=== PATIENT | female | born 1965 | race Caucasian/White ===

== ENCOUNTER 2024-11-03 21:01 | Emergency (ER) | payer BC, OTHER ==
[~2024-11-03] VITALS: Ht 162.6 cm; Wt 93.2 kg
[~2024-11-03 21:01] MED LIST: IBUP-1456 PO
[2024-11-03] MEDS: LIDOCAINE 1% HCL (LOCAL ANESTH.) INJ 20ML MDV ONE (21:34)
[2024-11-03] MEDS: LIDOCAINE 1% HCL (LOCAL ANESTH.) INJ 20ML MDV ID ONE (21:35)
--- NOTE | 2024-11-03 21:38 | ED.PDOC ---
HPI Comments 59 y/o F, presents to the ED for CC of laceration. Patient states, she accidently cut herself between her left 3rd and 4th digit while trying to open a can approximately x1hr PT ESCORT. Patient comments, she was seen at [facility] and was relayed to the ED for further care. No other symptoms or modifying factors present at this time. Time Seen by MD: 21:30 Primary Care Provider: KEVIN Reviewed Notes: Nurses Notes, Medications, Allergies Allergies: Coded Allergies: NO KNOWN ALLERGIES (Unverified , 11/29/11) Home Meds Reported Medications Ibuprofen (Ibuprofen) 800 Mg Tab, 800 MG PO Q8HP, TAB 08/30/13 Information Source: Patient Mode of Arrival: Ambulatory Severity: Moderate Severity of Laceration: Controlled Bleeding Complexity: Simple Timing: Minutes Prehospital treatment: None Laceration Location: Digit #3, Digit #4 Mechanism: Metal Last Tetanus: UTD Laceration Length (cm): 1 Depth of Injury: Skin Tendon Injury: 0% Tender: Moderate Discharge: Bloody Erythema: Localized to Wound Edges Past Medical History PAST MEDICAL HISTORY: DM Surgical History: Pacemaker, Thyroidectomy, Denies all surgeries Family History Family History: Unknown Social History Smoker: Non-Smoker Alcohol: Denies ETOH Use Drugs: Denies Drug Use Lives In: Home Constitutional: denies: chills, diaphoresis, fatigue, fever, malaise, sweats, weakness, others EENTM: denies: blurred vision, double vision, ear bleeding, ear discharge, ear drainage, ear pain, ear ringing, eye pain, eye redness, hearing loss, mouth pain, mouth swelling, nasal discharge, nose bleeding, nose congestion, nose pain, photophobia, tearing, throat pain, throat swelling, voice changes, others Respiratory: denies: cough, hemoptysis, orthopnea, SOB at rest, shortness of breath, SOB with excertion, stridor, wheezing, others Cardiovascular: denies: chest pain, dizzy spells, diaphoresis, Dyspnea on exertion, edema, irregular heart beat, left arm pain, lightheadedness, palpitations, PND, syncope, others Gastrointestinal: denies: abdomen distended, abdominal pain, blood streaked bowels, constipated, diarrhea, dysphagia, difficulty swallowing, hematemesis, melena, nausea, poor appetite, poor fluid intake, rectal bleeding, rectal pain, vomiting, others Genitourinary: denies: abnormal vagina bleeding, burning, dyspareunia, dysuria, flank pain, frequency, hematuria, incontinence, pain, , vagina dischar ge, urgency, others Neurological: denies: dizziness, fainting, headache, left sided numbness, left sided weakness, numbness, paresthesia, pre-existing deficit, right sided numbness, right sided weakness, seizure, speech problems, tingling, tremors, weakness, others Musculoskeletal: denies: back pain, gout, joint pain, joint swelling, muscle pain, muscle stiffness, neck pain, others Integumetry: reports: laceration (1CM BETWEENT THE LEFT 3RD AND 4TH DIGIT); denies: bruises, change in color, change in hair/nails, dryness, lesions, lumps, rash, wounds, others Allergic/Immunocompromised: denies: Difficulty Healing, Frequent Infections, Hives, Itching, others Hematologic/Lymphatic: denies: anemia, blood clots, easy bleeding, easy bruising, swollen glands, others Endocrine: denies: excessive hunger, excessive sweating, excessive thirst, excessive urination, flushing, intolerance to cold, intolerance to heat, unexplained weight gain, unexplained weight loss, others Psychiatric: denies: anxiety, bipolar disorder, depression, hopeless, panic disorder, schizophrenia, sleepless, suicidal, others Physical Exam General Appearance: No Apparent Distress, Normal HEENT: Normal ENT Inspection, Pharynx Normal Neck: Full Range of Motion, Non-Tender, Normal, Normal Inspection Respiratory: Chest Non-Tender, Lungs Clear, No Accessory Muscle Use, No Respiratory Distress, Normal Breath Sounds Cardiovascular: No Edema, No Murmur, No Gallop, Normal Peripheral Pulses, Regular Rate/Rhythm Breast Exam: Deferred Gastrointestinal: No Organomegaly, Non Tender, No Pulsatile Mass, Normal Bowel Sounds, Soft Genitalia: Deferred Pelvic: Deferred Rectal: Deferred Extremities: No calf tenderness, Normal capillary refill, Normal inspection, Normal range of motion, Non-tender, No pedal edema Musculoskeletal : Apperance: Normal Neurologic: Alert, apns II-XII nml as Tested, No Motor Deficits, Normal Affect, Normal Mood, No Sensory Deficits Cerebellar Function: Normal Reflexes: Normal Skin: Dry, Lacerations (1CM BETWEEN THE LEFT 3RD AND 4TH DIGIT), Normal Color, Warm Lymphatic: No Adenopathy Was a procedure done? Was a procedure done?: Yes Sedation Sedation?: No Laceration Repair : Location between left 3rd and 4th digits Length 1cm Anesthetic: Lidocaine (1% 2cc) Laceration Repair Wound Comple: epidermis/dermis repair Laceration Repair: Number of sutures (2) Informed consent obtained: Yes Risks, benefits, and alternati: Yes Differential diagnosis Generic Laceration: Laceration Differential Diagnosis: N/A X-Ray, Labs, Meds, VS Vital Signs Date Time Temp Pulse Resp B/P (MAP) Pulse Ox O2 Delivery O2 Flow Rate FiO2 11/03/24 21:29 98.0 104 17 143/94 (110) 95 98.0 Current Medications Medications (Trade) Dose Ordered Sig/Isaura Route Start Time Stop Time Status Last Admin Lidocaine HCl (Xylocaine 1%) ONCE ONCE ID 11/03/24 21:30 11/03/24 21:31 DC 11/03/24 21:35 X-Ray, Labs, Meds, VS Comment Imaging: X-rays and CT scans were reviewed and interpreted by this provider, imaging shows no fractures and no pathological disease. Pending radiology review. Laboratory: Labs reviewed and interpreted by this provider. No significant abnormalities noted. Patient has prior medical visits reviewed. Med reconciliation performed Vital signs reviewed Time of 1ST Reevaluation: 22:00 Reevaluation 1ST: Unchanged Patient Education/Counseling: Diagnosis, Treatment, Need For Follow Up (Follow up in 5-7 days for suture removal) Family Education/Counseling: No Family Present Departure 1 Departure Time of Disposition: 21:41 Impression: Primary Impression: Hand laceration Qualified Codes: S61.412A - Laceration without foreign body of left hand, initial encounter Disposition: HOME / SELF CARE / HOMELESS Condition: Fair Discharged With: Self Critical Care Note Critical Care Time?: No Stability Stability form required: No Heart Score Heart Score: Heart Score Response (Comments) Value History N/A 0 EKG N/A 0 Age N/A 0 Risk Factors N/A 0 Troponin N/A 0 Total 0 I personally scribed for MEGHAN AGUILAR PLATE CORRECTOR ([email or web address]) on 11/03/24 at 21:38. Electronically submitted by Genesis Hoyt ([email or web address]). I personally scribed for MEGHAN AGUILAR PLATE CORRECTOR ([email or web address]) on 11/03/24 at 21:40. Electronically submitted by Genesis Hoyt ([email or web address]). MEGHAN AGUILAR Nov 03, 2024 21:38
[2024-11-03 22:12] VITALS: BP 143/94; PULSE 104; RESP 17; TEMP 98; O2SAT 95
== END 2024-11-03 22:11 | disposition home or self-care (01) ==
LOC: ER 21:01
DX: S61.412A Laceration without foreign body of left hand, initial encounter (principal); E11.9 Type 2 diabetes mellitus without complications; Z90.89 Acquired absence of other organs; Z95.0 Presence of cardiac pacemaker; W26.8XXA Contact with other sharp object(s), not elsewhere classified, initial encounter; Y93.89 Activity, other specified; Y92.89 Other specified places as the place of occurrence of the external cause; Y99.8 Other external cause status
CPT/HCPCS: 12001; 99282; J2003